=== PATIENT | female | born 1950 | race Caucasian/White ===

== ENCOUNTER → 2017-04-30 | Outpatient (CLI) | payer OTHER ==
[~2017-04-30] MED LIST: ADVIL,NUPRIN,M200 MG PO; ALBUTEROL NEBULIZER; ALLERGY MEDICAT25 M1 PO; AUGMENTIN500 MG PO; AUGMENTIN875 MG PO; BETAMETHASONE VALERATE 0.1%; Bactrim,Septra DS 80 PO; CINNAMON500 MG PO; DULERA 200 MCG/13 GM IH; ECOTRIN81 M1 PO; FENOFIBRATE54 M1 PO; FISH OIL300 MG PO; FLAGYL500 MG PO; GLUCOPHAGE XR,500 MG PO; GLUCOPHAGE1000 MG PO; GLYBURIDE5 MG PO; HYDROCODON-ACE1 EAC7 PO; IRON325 M1 PO; KEFLEX500 MG PO; KLONOPIN0.5 M1 PO; LISINOPRIL2.5 MG PO; LOTRIMIN AF24 GM TP; LYRICA50 MG PO; MELATONIN5 M1 PO; NEURONTIN300 MG PO; NOHOMEMEDS; PAPAYA ENZYME1 EAC2 PO; PERCOCET 5/31 TABLET PO; Phenergan PO; PriLOSEC PO; STOOL SOFT-STI1 EACH PO; TYLENOL WITH C1 EACH PO; Tylenol Regular Stre PO; VENTOLIN HFA18 GM IH; ZOLOFT100 MG PO; ZOLOFT50 MG PO; [UNRECOGNIZED DRUG - OTHER] PO; [UNRECOGNIZED DRUG - OTHER] PO
== END | disposition home or self-care (01) ==
LOC: AMB 12:45
DX: M47.26 Other spondylosis with radiculopathy, lumbar region (principal); M48.06 Spinal stenosis, lumbar region; M53.3 Sacrococcygeal disorders, not elsewhere classified
CPT/HCPCS: 62304; 72132; 72192; 77003